=== PATIENT | male | born 1985 | race African-American/Black ===

== ENCOUNTER 2017-03-15 12:31 | Emergency (ER) | payer MEDICAID ==
[~2017-03-15] VITALS: Ht 177.8 cm; Wt 86.0 kg
[2017-03-15 15:15] VITALS: BP 138/75
== END 2017-03-15 16:10 | disposition home or self-care (01) ==
LOC: ER 14:00
DX: R51 Headache (principal); F17.200 Nicotine dependence, unspecified, uncomplicated; V89.2XXA Person injured in unspecified motor-vehicle accident, traffic, initial encounter; Y93.89 Activity, other specified; Y92.89 Other specified places as the place of occurrence of the external cause; Y99.8 Other external cause status
CPT/HCPCS: 70450; 99284

== ENCOUNTER 2017-03-18 14:41 | Emergency (ER) | payer MEDICAID ==
[~2017-03-18] VITALS: Ht 177.8 cm; Wt 86.0 kg
[2017-03-18 14:49] VITALS: BP 119/79
== END 2017-03-18 17:30 | disposition home or self-care (01) ==
LOC: ER 15:18
DX: S16.1XXA Strain of muscle, fascia and tendon at neck level, initial encounter (principal); V49.9XXA Car occupant (driver) (passenger) injured in unspecified traffic accident, initial encounter; M54.2 Cervicalgia; F17.210 Nicotine dependence, cigarettes, uncomplicated; Y92.89 Other specified places as the place of occurrence of the external cause; Y93.89 Activity, other specified
CPT/HCPCS: 99281